=== PATIENT | male | born 1965 | race Caucasian/White ===

== ENCOUNTER 2018-07-24 11:13 | Day surgery (SDC) | payer MEDICAID ==
[~2018-07-24] VITALS: Ht 177.8 cm; Wt 93.2 kg
--- NOTE | ~2018-07-24 | MORECARE ---
CASE MANAGEMENT DISCHARGE SUMMARY PATIENT: TONI HARTMANN UNIT: [id number] ADM DATE: 07/24/18 AGE: 52 : 63 SEX: M ROOM/BED: AUTHOR: JORGE ALBERTO FREEDMAN PHYSICIAN: REFERRING PHYSICIAN: MARLEE RANDALL MD DATE OF SERVICE: 07/24/18 Discharge Plan Patient Name: TONI HARTMANN Facility: [facility]:[place] : 1965 Planned Disposition: Home Anticipated Discharge Date: Discharge Date: Expected LOS: 0 Initial Reviewer: [email or web address] Initial Review Date: 07/24/2018 Generated: 07/24/18 3:12 pm Comments DCP- Discharge Planning Updated by [email or web address]: Terri Boyd on 07/24/18 1:[address] Patient Name: TONI HARTMANN Admission Status: Elective Accout number: [id number] Admission Date: 07-24-2018 : 1965 Admission Diagnosis: Attending: Marlee Randall Current LOS: 1 Anticipated DC Date: Planned Disposition: Home Primary Insurance: MEDICAID [place] Discharge Planning Comments: CM contacted by nurseLena, and instructed Dr. Randall request CM to meet with patient. CM met with patient about his discharge needs. Patient denies any needs at this time. States he lives in a hotel that he has paid for two more nights. CM noted that on prior admission patient stated he lived with his parents. Patient stated he doesn't live with them anymore because they don't want anything to do with him. Patient denied having any friends or other family would be an option for him to live with. When CM spoke with patient about homeless shelters patient stated he could not go back to the shelters and then added, I can't live with other people like that. Patient is knowledgeable about community resources available and denies any needs at this time. Input Output Clerk: Terri Ayala DP export: 07/24/18 12:34 p Patient Name: TONI HARTMANN Page [id number] at 1413 All edits/amendments must be made on the electronic document DICTATION DATE: 07/24/18 1412 WASTEWATER DESIGN ENGINEER: ANISH 07/24/181411 RPT#: [id number] DC DATE: STATUS: REG [facility] [address] [place] [address] END OF REPORT
--- NOTE | ~2018-07-24 | OP ---
PATIENT NAME: TONI OLIVAREZ MEDICAL RECORD: [id number] :63 LOCATION:[facility] ADMISSION DATE: SURGEON: MARLEE BRUCE MD DATE OF OPERATION: 07/24/2018 PROCEDURE: EGD with esophageal balloon dilatation INDICATIONS: Mr. Olivarez is a 52-year-old gentleman with a history of bipolar disorder, who presents for followup EGD. In December 2017, he had esophageal food bolus with EGD, 12/23/2017, showing mild ulcerative changes in the distal esophagus with a nonobstructing Schatzki's ring, food bolus had spontaneously passed into the stomach; small hiatal hernia, mild gastritis and erosive duodenitis. His antral biopsy was negative for Helicobacter pylori. He is having intermittent dysphagia, but overall is doing well. He presents for outpatient EGD. PREMEDICATIONS: Total IV anesthesia (bipolar disorder) propofol 300 mg. INSTRUMENT: WazeTrip video colonoscope. PROCEDURE AND FINDINGS: After receiving informed consent, Mr. Cochrans posterior pharynx was anesthetized with Cetacaine spray, placed in left lateral decubitus position, sedated as per anesthesia. After achieving adequate level of sedation, gastroscope was introduced per orally and advanced into the duodenum without difficulty. The esophageal mucosa was without erythema or ulcers. The previously seen ulcers had healed. A thick nonobstructive Schatzki's ring was present at the GE junction. Small hiatal hernia is present. Gastric mucosa was without erythema or ulcers, and appeared normal throughout including the mucosa of the cardia, fundus, body and antrum of the stomach. Pylorus was patent and competent. Duodenal mucosa was without erythema or erosions and duodenal mucosa appeared normal to the second portion. The gastroscope was then withdrawn into the stomach. Through the scope, esophageal balloon dilator was passed and then the balloon was positioned midway across the distal esophagus, insufflated to a 60-Maltese size, held in place on the appropriate PSI for 60 seconds, then deflated with good results. Balloon and gastroscope were withdrawn. Mr. Olivarez tolerated the procedure well. No immediate complications. ASSESSMENT: 1. Healed esophageal ulcers. 2. Thick nonobstructive Schatzki's ring status post esophageal balloon dilatation. 3. Small hiatal hernia. RECOMMENDATIONS: 1. Soft diet today. 2. Avoid nonsteroidal anti-inflammatory drugs for 1 week. 3. EGD with esophageal balloon dilatation as needed. 4. Recommend screening colonoscopy. TRANSINT:[id number] Voice Confirmation ID: [id number] DOCUMENT ID: [id number] OPERATIVE REPORT [id number] TONI OLIVAREZ TERRI MD at 1828 CC: KELLY MOREIRA MD [id number] DICTATION DATE: 07/24/18 1355 PROFESSOR OF MATHEMATICS: 07/24/18 1509 [facility] 07/24/[address] [address]
--- NOTE | ~2018-07-24 | MORECARE ---
CASE MANAGEMENT DISCHARGE SUMMARY PATIENT: TONI HARTMANN UNIT: [id number] ADM DATE: 07/24/18 AGE: 52 : 63 SEX: M ROOM/BED: AUTHOR: JORGE ALBERTO FREEDMAN PHYSICIAN: REFERRING PHYSICIAN: MARLEE BRUCE MD DATE OF SERVICE: 07/24/18 Discharge Plan Patient Name: TONI HARTMANN [facility] [facility] 1965 Planned Disposition: Home Anticipated Discharge Date: Discharge Date: Expected LOS: 0 Initial Reviewer: [email or web address] Initial Review Date: 07/24/2018 Generated: 07/24/18 2:34 pm Patient Name: TONI HARTMANN Page [id number] at 1334 All edits/amendments must be made on the electronic document DICTATION DATE: 07/24/18 133 RECRUITMENT COORDINATOR: ANISH 07/24/18 1334 RPT#: [id number] [place] DATE: STATUS: REG [facility] [address] [place] [address] END OF REPORT
--- NOTE | ~2018-07-24 | MORECARE ---
CASE MANAGEMENT DISCHARGE SUMMARY PATIENT: TONI HARTMANN UNIT: [id number] ADM DATE: 07/24/18 AGE: 52 : 63 SEX: M ROOM/BED: AUTHOR: JORGE ALBERTO FREEDMAN PHYSICIAN: REFERRING PHYSICIAN: MARLEE RANDALL MD DATE OF SERVICE: 07/28/18 Discharge Plan Patient Name: TONI HARTMANN Facility: [facility]:[place] : 1965 Planned Disposition: Home Anticipated Discharge Date: Discharge Date: 07/24/2018 Expected LOS: 0 Initial Reviewer: [email or web address] Initial Review Date: 07/24/2018 Generated: 07/28/18 3:37 pm Comments DCP- Discharge Planning Updated by [email or web address]: Terri Boyd on 07/24/18 1:[address] Patient Name: TONI HARTMANN Admission Status: Elective Accout number: [id number] Admission Date: 07-24-2018 : 1965 Admission Diagnosis: Attending: Marlee Randall Current LOS: 1 Anticipated DC Date: Planned Disposition: Home Primary Insurance: MEDICAID [place] Discharge Planning Comments: CM contacted by nurseLena, and instructed Dr. Randall request CM to meet with patient. CM met with patient about his discharge needs. Patient denies any needs at this time. States he lives in a hotel that he has paid for two more nights. CM noted that on prior admission patient stated he lived with his parents. Patient stated he doesn't live with them anymore because they don't want anything to do with him. Patient denied having any friends or other family would be an option for him to live with. When CM spoke with patient about homeless shelters patient stated he could not go back to the shelters and then added, I can't live with other people like that. Patient is knowledgeable about community resources available and denies any needs at this time. Assembler Insulator: Terri VALENTINO export: 07/24/18 1:13 p Patient Name: TONI HARTMANN Page [id number] at 1437 All edits/amendments must be made on the electronic document DICTATION DATE: 07/28/181435 RFID ANALYST: ANISH 07/28/18 143 RPT#: [id number] DC DATE:07/24/18 STATUS: [facility] [address] [facility] [place] [address] END OF REPORT
[2018-07-24] MEDS ORDERED: ALBUTEROL SULF8.5 GM (11:42)
[2018-07-24] MEDS ORDERED: CELEXA20 MG (11:43)
[2018-07-24] MEDS ORDERED: DEPAKOTE500 MG PO (11:43)
[2018-07-24] MEDS ORDERED: TRAZODONE HCL100 MG PO (11:44)
[2018-07-24] MEDS ORDERED: CIPRO500 MG PO (11:44)
[2018-07-24] MEDS ORDERED: HYDROCHLOROTH12.5 M1 PO (11:44)
[2018-07-24] MEDS ORDERED: OMEPRAZOLE DR 20 MG (11:45)
[2018-07-24] MEDS ORDERED: CARAFATE1 G (11:45)
[2018-07-24 11:47] VITALS: BP 111/64; Ht 177.8 cm; Wt 93.2 kg
== END 2018-07-24 15:40 | disposition home or self-care (01) ==
LOC: D.OPS 11:13
DX: K22.2 Esophageal obstruction (principal); K44.9 Diaphragmatic hernia without obstruction or gangrene; F31.9 Bipolar disorder, unspecified; Z01.812 Encounter for preprocedural laboratory examination

== ENCOUNTER 2018-07-27 09:34 | Emergency (ER) | payer MEDICAID ==
[~2018-07-27] VITALS: Ht 177.8 cm; Wt 93.2 kg
[~2018-07-27 09:34] MED LIST: ALBUTEROL SULF8.5 GM; CARAFATE1 G; CELEXA20 MG; CIPRO500 MG PO; DEPAKOTE500 MG PO; HYDROCHLOROTH12.5 M1 PO; OMEPRAZOLE DR 20 MG; TRAZODONE HCL100 MG PO
[2018-07-27 09:38] VITALS: Ht 177.8 cm; Wt 93.2 kg
[2018-07-27 10:03] LABS: BASOPHILS 0.8 % (0-2); EOSINOPHILS 4.6 % (0-7); HEMATOCRIT 46.2 % (42.0-54.0); HEMOGLOBIN 15.9 g/dL (13.5-17.5); IMMATURE GRANULOCYTES 0.3 % (0-5); LYMPHOCYTES 22.8 % (15-50); MCH 30.9 pg (26.0-34.0); MCHC 34.4 g/dL (31.0-37.0); MCV 89.7 fL (80.0-100.0); MEAN PLATELET VOLUME 9.3 fL (7.4-10.4); MONOCYTES 7.1 % (2-11); NEUTROPHILS 64.4 % (40-80); PLATELET COUNT 217 10x3/uL (130-400); RBC 5.15 10x6/uL (4.20-6.10); RDW 12.9 % (11.5-14.5); WBC 7.6 10x3/uL (4.8-10.8)
[2018-07-27 10:22] LABS: CREATININE - SERUM 0.9 mg/dL (0.6-1.3); eGFR NON AFRICAN AMERICAN > 90 mL/min (90-120)
[2018-07-27 10:32] LABS: ALBUMIN 3.8 g/dL (3.4-5.0); ALKALINE PHOSPHATASE 72 U/L (46-116); ALT (SGPT) 45 U/L (10-68); CALC OSMOLALITY 273 mosm/kg (275-300); CALCIUM 9.2 mg/dL (8.5-10.1); CHLORIDE - SERUM 102 mmol/L (98-107); GLUCOSE 93 mg/dL (74-106); POTASSIUM - SERUM 4.2 mmol/L (3.5-5.1); PROTEIN - SERUM 7.5 g/dL (6.4-8.2); SODIUM 138 mmol/L (136-145); UREA NITROGEN 8 mg/dL (7-18)
[2018-07-27 11:20] VITALS: BP 148/76
== END 2018-07-27 11:21 | disposition home or self-care (01) ==
LOC: D.ER 09:34
PROVIDERS: Family Medicine
DX: R25.1 Tremor, unspecified (principal); Z86.59 Personal history of other mental and behavioral disorders; F17.200 Nicotine dependence, unspecified, uncomplicated

== ENCOUNTER 2020-03-14 05:30 | Day surgery (SDC) | payer MEDICAID ==
[~2020-03-14] VITALS: Ht 177.8 cm; Wt 96.4 kg
[2020-03-14] MEDS ORDERED: COLESTID1 GM PO (06:44)
[2020-03-14] MEDS ORDERED: MEDICAL MARIJUANA (06:46)
[2020-03-14 07:13] VITALS: BP 121/76; Ht 177.8 cm; Wt 96.4 kg
--- NOTE | 2020-03-14 08:30 | NUR ---
0830 BEHAVIORAL HEALTH NURSE DID NOT VISIT PT PRIOR TO HIS PROCEDURE. REQUEST CALLED TO HILARIO, SUPERVISOR FIREARMS, AROUND 0715. SECOND REQUEST SUBMITTED FOR BEHAVIORAL HEALTH EVALUATION BY SPEAKING WITH HILARIO.
--- NOTE | 2020-03-14 08:45 | NUR ---
DR MARTÍNEZ NOTIFIED AND REVIEWED PT'S BEHAVIOR AND ASSESSMENT. PT IS LOW RISK. RESOURCES GIVEN AND HE VERBALIZES UNDERSTANDING.
--- NOTE | 2020-03-14 09:27 | NUR ---
0842 [facility] NURSE HERE TO EVALUATE PT 0856 IV DC'D. CATHETER TIP INTACT. NO BLEEDING AT SITE. BANDAID APPLIED. 0905 DISCHARGE INSTRUCTIONS GIVEN. PT REPEATED BACK INSTRUCTIONS DUE TO BEING DYSLEXIC AND HAS DIFFICULTY READING. PT VOICES UNDERSTANDING OF INSTRUCTIONS.
--- NOTE | 2020-03-15 07:03 | OP ---
PATIENT NAME: TONI HARTMANN MEDICAL RECORD: [id number] :63 LOCATION:[facility] ADMISSION DATE: SURGEON: JONATHAN MENDENHALL DO DATE OF OPERATION: 03/14/2020 PROCEDURE: EGD with balloon dilation and biopsies. INDICATIONS FOR PROCEDURE: Dysphagia, history of esophageal ulcer without bleeding, nausea and vomiting. SCOPE: Olympus video gastroscope. MEDICATIONS: Propofol 250 mg IV per anesthesia. ESTIMATED BLOOD LOSS: Minimal. COMPLICATIONS: None. FINDINGS: Informed consent was given. The patient was made comfortable with the above medication. After reaching an adequate level of sedation by slow IV push, the patient was placed on his left side. The endoscope was advanced under direct visualization through the mouth to the second portion of the duodenum with ease. The upper and middle thirds of the esophagus appeared normal. In the middle third of the esophagus, cold forceps biopsies were taken to rule out the presence of eosinophils. At the GE junction, there was evidence of LA class A reflux-induced esophagitis and a small nonobstructing Schatzki's ring that measured approximately 10 mm in diameter. A 16-18 mm CRE dilating balloon was used to dilate the ring up to 18 mm diameter successfully. The endoscope was advanced beyond the GE junction into the stomach and retroflexed to view the cardia, where a small sliding hiatal hernia was present. The fundus and body of the stomach appeared normal. In the antrum and prepyloric regions, there was some erythema and granularity consistent with mild chronic gastritis. Cold forceps biopsies were taken from the antrum to submit for histopathology and to rule out the presence of H. pylori. The endoscope was advanced beyond the pylorus. The duodenum appeared normal to the second portion. The endoscope was withdrawn from the patient. The patient tolerated the procedure well and there were no complications. IMPRESSION: 1. LA class A reflux-induced esophagitis. 2. Small nonobstructive Schatzki ring, which was dilated to 18 mm. 3. Small sliding hiatal hernia. 4. Mild chronic gastritis, characterized by erythema and granularity in the antrum. PLAN AND RECOMMENDATIONS: 1. Discharge home when recovery parameters are met. 2. Follow up biopsy specimen results. 3. GERD diet and reflux precautions. 4. Okay to continue [id number]-[id number] use of antacids as needed for reflux symptoms. 5. Notify the GI clinic if symptoms worsen or fail to improve. 6. Follow up in GI clinic as needed. TRANSINT:[id number] Voice Confirmation ID: [id number] DOCUMENT ID: [id number] OPERATIVE REPORT [id number] TONI HARTMANN NATHAN A DO at 0703 CC: [id number] DICTATION DATE: 03/14/20819 NURSE PRACTITIONER PHYSICIAN ASSISTANT: 03/14/20 1807 [facility] 03/14/[address] [address]
== END 2020-03-14 09:13 | disposition home or self-care (01) ==
LOC: D.OPS 05:30
PROVIDERS: ATTEND Internal Medicine Gastroenterology
DX: R13.10 Dysphagia, unspecified (principal); R11.2 Nausea with vomiting, unspecified; K92.1 Melena; K59.00 Constipation, unspecified

== ENCOUNTER 2020-05-11 07:49 | Emergency (ER) | payer MEDICAID ==
[~2020-05-11] VITALS: Ht 177.8 cm; Wt 90.9 kg
[~2020-05-11 07:49] MED LIST changes: +COLESTID1 GM PO; +MEDICAL MARIJUANA
[2020-05-11 08:05] VITALS: Ht 177.8 cm; Wt 90.9 kg
[2020-05-11] MEDS ORDERED: AUGMENTIN 875-11 TAB PO (08:15)
[2020-05-11 09:37] VITALS: BP 118/74
== END 2020-05-11 09:38 | disposition home or self-care (01) ==
LOC: D.ER 07:49
DX: S61.451A Open bite of right hand, initial encounter (principal); W55.01XA Bitten by cat, initial encounter; Y93.9 Activity, unspecified; Y92.9 Unspecified place or not applicable